=== PATIENT | female | born 1940 | race Caucasian/White ===

== ENCOUNTER 2019-09-09 11:25 | Observation (INO) ==
[2019-09-09] MEDS ORDERED: ONDANSETRON INJ 2 MG/ML 2 ML VIAL IV STA (12:08)
[2019-09-09 12:31] LABS: Basophils # (auto) 0.03 K/uL (0-0.2); Basophils % (auto) 0.3 %; Eosinophils # (auto) 0.33 K/uL (0-0.5); Hemoglobin 17.4 g/dL (12.0-16.0); Immature Granulocytes # (auto) 0.02 K/uL (0.00-0.02); Immature Granulocytes % (auto) 0.2 %; Lymphocytes # (auto) 1.98 K/uL (1.2-3.4); Lymphocytes % (auto) 18.1 %; Mean Corpuscular Hemoglobin 34.4 pg (25-34); Mean Corpuscular Hgb Conc 34.1 g/dL (32-36); Mean Corpuscular Volume 100.8 fL (80-100); Monocytes # (auto) 0.61 K/uL (0.11-0.59); Monocytes % (auto) 5.6 %; Neutrophils # (auto) 7.96 K/uL (1.4-6.5); Neutrophils % (auto) 72.8 %; Platelet Count 233 K/uL (130-400); RDW Coefficient of Variation 14.7 % (11.5-14.5); RDW Standard Deviation 53.9 fL (36.4-46.3); Red Blood Count 5.06 M/uL (4.2-5.4); White Blood Count 10.93 K/uL (4.8-10.8)
--- NOTE | 2019-09-09 12:34 | Emergency Department Note ---
Entered by Maite Painting acting as a scribe for History of Present Illness General Chief complaint: Dizziness Stated complaint: LIGHT HEADED, DIZZY, NAUSEA,HTN Time Seen by Provider: 09/09/19 12:01 Source: patient Mode of arrival: ambulatory Limitations: no limitations History of Present Illness Provider complaint: Dizziness Onset (ago): hour(s) (this morning) Location: head Radiation: non-radiation Pain Consistency: + other (persistent) Maximum Pain Intensity: 0 Quality: + other (dizziness) Relieved By: + other (sitting down) Exacerbated By: + movement (standing) Associated symptoms: + cough (chronic), + nausea/vomiting and + other (Additional symptoms: hypertension. Denies: abdominal pain, urinary symptoms); no chest pain and no fever/chills Treatments prior to arrival: none The patient is a 78 year old female with a history of hypertension who presents to the Emergency Room with complaints of persistent dizziness starting this morning. The patient reports that she felt dizzy when she woke up and notes that the room feels likes it is "rocking" when she stands. She states that her dizziness improves with sitting down. She also complains of nausea and hypertension. She explains that she does not normally check her blood pressure but recalls that it was 130/80 the last time she saw her doctor. The patient reports that she experienced similar symptoms yesterday and explains that they resolved as the day went on. She notes that her family made her come in today due to her persistent dizziness. The patient adds that she has had a chronic cough for the past 3 years but otherwise denies any fevers, abdominal pain, b[address] pain, urinary symptoms, and recent illnesses. She states that she has been taking Valsartan for hypertension for many years and recently started using an inhaler for possible COPD. She concedes to having smoked half a pack or less every day for the past 60 years. Home Medications Home Medications Medication Instructions Recorded Confirmed Type albuterol sulfate 2 puff INHALATION Q6H PRN 09/09/19 09/09/19 History diphenhydramine-acetaminophen 1 tab PO HS 09/09/19 09/09/19 History [Acetaminophen PM] simvastatin 20 mg PO HS 09/09/19 09/09/19 History valsartan-hydrochlorothiazide 1 tab PO DAILY 09/09/19 09/09/19 History Allergies Allergy/AdvReac Type Severity Reaction Status Date / Time bupropion [From Zyban] Allergy Hives Unverified 09/09/19 13:35 minocycline Allergy Rash Unverified 09/09/19 13:35 Past Med/Surg History Medical History (Updated 09/09/19 @ 14:30 by JOSEPH Valentine) CKD (chronic kidney disease), stage III COPD (chronic obstructive pulmonary disease) Hypertension Surgical History (Updated 09/09/19 @ 14:30 by JOSEPH Valentine) History of hysterectomy Social History (Updated 09/09/19 @ 13:51 by Maite Painting) Preferred Language: Uruguayan marital status: single current occupational status: retired Feels Safe at Home: Yes Smoking Status: Current every day smoker packs per day: 0.5 ; Years Smoked: 60 ; Review of Systems See HPI for pertinent positives & negatives. and A total of 10 systems reviewed and were otherwise negative Physical Exam Vital Signs Vital Signs - 24 hr 09/09/19 11:31 09/09/19 12:29 09/09/19 13:13 Temperature 36.4 C L Temperature Source Oral Pulse Rate 103 H Pulse Rate [Left Foot] 84 82 Pulse Rhythm Regular Pulse Strength Normal Respiratory Rate 20 16 20 Respiratory Effort / Characteristics Non-Labored Non-Labored Respiratory Depth Normal Normal Respiratory Pattern Regular Blood Pressure 189/111 H Blood Pressure [Left Arm] 206/102 H 172/89 H Blood Pressure Mean 137 Blood Pressure Mean [Left Arm] 136 116 Blood Pressure Position Sitting Pulse Oximetry 93 94 92 Oxygen Delivery Method Room Air Room Air Room Air Sepsis Recent Fever Within 48 Hours No Sepsis New/Unexplained Change in Mental Status No Sepsis Action Taken by Nursing No Action Required VITAL SIGNS: were reviewed as above. GENERAL:Non-toxic in appearance. SKIN: Warm dry and pink. HEAD: Normocephalic and atraumatic. OROPHARYNX: Is clear and moist NECK: Supple without lymphadenopathy or meningismus. LUNGS: Are clear. HEART: Regular rate and rhythm. ABDOMEN: Soft and nontender. EXTREMITIES: Warm and well perfused. NEUROLOGICALLY: Awake alert and oriented without focal deficit. Cranial nerves 2-12 are intact. There is no pronator drift. Cerebellar testing is within normal limits. There is no nystagmus. There is no facial droop. Speech is clear. Vision is grossly normal. MUSCULOSKELETAL: Good muscle tone. No evidence of trauma. Strength is symmetric. ALL NURSING NOTES WERE REVIEWED. Course Course 1203: The patient was evaluated in room C2B, and a complete history and physical examination were performed. 1310: I checked on the patient and updated her and her family on her results. 1332: I reviewed the patient's case with [facility]. [facility] will evaluate the patient for further management. 1344: Upon reevaluation, the patient is resting. I discussed the results and findings with her and her family. They verbalized agreement of the treatment plan. Consultations Consultation #1: I reviewed the patient's case with [facility]. [facility] will evaluate the patient for further management. Time: 13:32 Administered Medications Discontinued Medications Amlodipine Besylate (Norvasc) 5 mg PO NOW ONE Stop: 09/09/19 13:56 Last Admin: 09/09/19 14:14 Dose: 5 mg Documented by: [id number] Ondansetron HCl (Zofran) 4 mg IV NOW STA Stop: 09/09/19 12:09 Last Admin: 09/09/19 12:43 Dose: 4 mg Documented by: [id number] Medical Decision Making Differential Diagnosis Differential diagnosis: Etiologies such as metabolic, infection, hypo/hyperglycemia, electrolyte abnormalities, cardiac sources, intracerebral event, toxicologic, neurologic, as well as others were entertained. Medical Records Attestation: I reviewed the patient's medical records. Home Medications Current Medication List: was personally reviewed by me Laboratory Data Attestation: I reviewed the patient's lab results. Result diagrams: 09/09/19 12:20 09/09/19 13:19 Lab Results 09/09/19 09/09/19 09/09/19 Range/Units 12:20 12:20 13:19 WBC 10.93 H (4.8-10.8) K/uL RBC 5.06 (4.2-5.4) M/uL Hgb 17.4 H (12.0-16.0) g/dL Hct 51.0 H (37-47) % MCV 100.8 H (80-100) fL MCH 34.4 H (25-34) pg MCHC 34.1 (32-36) g/dL RDW Std Deviation 53.9 H (36.4-46.3) fL RDW Coeff of Payton 14.7 H (11.5-14.5) % Plt Count 233 (130-400) K/uL MPV 10.0 (7.4-10.4) fL Immature Gran % (Auto) 0.2 % Neut % (Auto) 72.8 % Lymph % (Auto) 18.1 % [place] % (Auto) 5.6 % Eos % (Auto) 3.0 % Baso % (Auto) 0.3 % Immature Gran # (Auto) 0.02 (0.00-0.02) K/uL Neut # (Auto) 7.96 H (1.4-6.5) K/uL Lymph # (Auto) 1.98 (1.2-3.4) K/uL [place] # (Auto) 0.61 H (0.11-0.59) K/uL Eos # (Auto) 0.33 (0-0.5) K/uL Baso # (Auto) 0.03 (0-0.2) K/uL Sodium 138 (136-145) mmol/L Potassium 4.0 (3.5-5.1) mmol/L Chloride 102 (98-107) mmol/L Carbon Dioxide 29 (21-32) mmol/L Anion Gap 7.0 (3-11) BUN 21 H (7-18) mg/dl Creatinine 0.98 (0.6-1.2) mg/dl Est Cr Clr Drug Dosing 47.0 ml/min Est GFR ( Amer) 63.6 Est GFR (Non-Af Amer) 54.9 BUN/Creatinine Ratio 21.1 H (10-20) Glucose 89 (70-99) mg/dl Calcium 9.9 (8.5-10.1) mg/dl Total Bilirubin 1.0 (0.2-1) mg/dl AST 14 L (15-37) U/L ALT 20 (12-78) U/L Alkaline Phosphatase 78 (45-117) U/L Troponin I < 0.015 (0-0.045) ng/ml Total Protein 7.5 (6.4-8.2) gm/dl Albumin 3.9 (3.4-5.0) gm/dl Globulin 3.6 (2.5-4.0) gm/dl Albumin/Globulin Ratio 1.1 (0.9-2) TSH 3.220 (0.300-4.500) uIu/ml Imaging Data Radiologist's Impression: Radiology results as stated below per my review and the radiologist's interpretation: XR chest 1V portable CLINICAL HISTORY: 78 years-old Female presenting with weakness. TECHNIQUE: Portable upright AP view of the chest was obtained. COMPARISON: None. FINDINGS: Atherosclerosis of the aortic arch. Cardiac silhouette normal in size. Lungs are hyperinflated with significant heterogeneity of lung parenchyma. Mild interstitial prominence.. No focal opacity. No pleural effusion or pneumothorax. Osteopenia suspected. Upper abdomen normal. IMPRESSION: 1. Findings suggest emphysema. No focal infiltrate to suggest pneumonia. ACT 112: Negative or not required by law. Electronically signed by: Joao Pandya M.D. 09/09/2019 1:[address] CT DOSE: 638.56 mGycm HISTORY: dizziness TECHNIQUE: Multiaxial CT images of the head were performed without the use of intravenous contrast. Automated exposure control was utilized for this study. A dose lowering technique was utilized adhering to the principles of ALARA. Comparison: None. Findings: Mild mucosal thickening within the ethmoid air cells. The mastoid air cells are clear. The calvarium and skull base are intact. There is no mass, hematoma, midline shift, acute infarct. White matter hypodensity is nonspecific but suggestive of microvascular ischemic change. The ventricles and sulci demonstrate mild age-related involutional changes. 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 Impression: No acute intracranial abnormality. Atrophy and microvascular ischemic changes. ACT 112: Negative or not required by law. Electronically signed by: Alvin Shelton M.D. 09/09/2019 1:09 PM ECG Data Attestation: I personally reviewed and interpreted this ECG as follows: Indication: + other (dizziness) Rate (beats per minute): 84 Rhythm: + normal sinus ECG Intervals/blocks: + Normal QT-c ECG ST segments: no ST elevation ECG Findings: no PVCs Blood Pressure Blood Pressure Findings: Elevated blood pressure Blood Pressure Disposition: further management by hospitalist JED Garcia This is a 78-year-old female who presents to the ED with a chief complaint of feeling dizzy when she awoke this morning. The patient states that her dizzy sensation is a sensation that the room is moving slightly when standing. It seems to be better with sitting. She also complains of some nausea. She had the same symptoms yesterday morning when she awoke but it improved throughout the day. The patient also noted that her blood pressure was elevated this morning. She does not take her blood pressure regularly but states the last time it was checked at the PCPs office it was around 130 systolic. The patient has a blood pressure of 189/111 today. Her heart rate is 103. Her physical exam and neuro exam were unremarkable. The patient CBC was unremarkable. Chemistry panel was normal. Troponin is negative. EKG showed a normal sinus rhythm with no ST elevations or ectopy. There is T wave inversions in aVL. No old EKG was available for comparison. A CT scan of the brain reveals no acute p rocess but there is microvascular ischemic changes. Chest x-ray was negative for acute disease. The patient did receive IV Zofran. Her blood pressure seems to be slowly improving without treatment here. The highest blood pressure was 206/102. Last blood pressure was 172/89. Because the patient's symptoms and significant hypertension, the patient will be seen for observation and for further evaluation by the hospitalist service. The patient was treated with some IV Zofran for her nausea. Impression & Plan Accelerated hypertension, Dizziness Discharge Plan Visit Data Chief Complaint: Dizziness Stated Complaint: LIGHT HEADED, DIZZY, NAUSEA,HTN ED Provider: Saulo Austin Discharge Problem: Accelerated hypertension, Dizziness Patient Disposition: Admitted As Inpatient Forms Stand Alone Forms: [facility] Prescriptions Prescriptions: No Action valsartan-hydrochlorothiazide 320-12.5 mg tablet 1 tab PO DAILY RF: 0 diphenhydramine-acetaminophen [Acetaminophen PM] 25-500 mg Tablet 1 tab PO HS RF: 0 simvastatin 20 mg tablet 20 mg PO HS RF: 0 albuterol sulfate 90 mcg/actuation HFA aerosol inhaler 2 puff INHALATION Q6H PRN (Reason: Shortness Of Breath) RF: 0 Referrals Referrals: Thao Madrid MD [Primary Care Provider] - The scribe's documentation has been prepared under my direction and personally reviewed by me in its entirety. I confirm that the note above accurately reflects all work, treatment, procedures, and medical decision making performed by me.
[2019-09-09 13:05] LABS: Alanine Aminotransferase 20 U/L (12-78); Albumin Level 3.9 gm/dl (3.4-5.0); BUN Creatinine Ratio 21.1 (10-20); Blood Urea Nitrogen 21 mg/dl (7-18); Calcium 9.9 mg/dl (8.5-10.1); Carbon Dioxide 29 mmol/L (21-32); Chloride 102 mmol/L (98-107); Est GFR (African American) 63.6; Est GFR (Non-African American) 54.9; Glucose 89 mg/dl (70-99); Sodium 138 mmol/L (136-145)
[2019-09-09 13:09] LABS: Albumin Globulin Ratio 1.1 (0.9-2); Alkaline Phosphatase 78 U/L (45-117); Globulin 3.6 gm/dl (2.5-4.0); Total Protein 7.5 gm/dl (6.4-8.2); Troponin I < 0.015 ng/ml (0-0.045)
--- NOTE | 2019-09-09 13:10 | CT Scan Report ---
HEAD CT NONCONTRAST CT DOSE: 638.56 mGycm HISTORY: dizziness TECHNIQUE: Multiaxial CT images of the head were performed without the use of intravenous contrast. A utomated exposure control was utilized for this study. A dose lowering technique was utilized adheri ng to the principles of ALARA. Comparison: None. Findings: Mild mucosal thickening within the ethmoid air cells. The mastoid air cells are clear. The calvarium and skull base are intact. There is no mass, hematoma, midline shift, acute infarct. White matter hypodensity is nonspecific but suggestive of microvascular ischemic change. The ventricles and sulci demonstrate mild age-related involutional changes. 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 Impression: No acute intracranial abnormality. Atrophy and microvascular ischemic changes. ACT 112: Negative or not required by law. Electronically signed by: Alvin Shelton M.D. 09/09/2019 1:09 PM
--- NOTE | 2019-09-09 13:20 | XRay Report ---
XR chest 1V portable CLINICAL HISTORY: 78 years-old Female presenting with weakness. TECHNIQUE: Portable upright AP view of the chest was obtained. COMPARISON: None. FINDINGS: Atherosclerosis of the aortic arch. Cardiac silhouette normal in size. Lungs are hyperinflated with s ignificant heterogeneity of lung parenchyma. Mild interstitial prominence.. No focal opacity. No pleu ral effusion or pneumothorax. Osteopenia suspected. Upper abdomen normal. IMPRESSION: 1. Findings suggest emphysema. No focal infiltrate to suggest pneumonia. ACT 112: Negative or not required by law. Electronically signed by: Joao Pandya M.D. 09/09/2019 1:18 PM
[2019-09-09] MEDS ORDERED: AMLODIPINE BESYLATE 5 MG TAB PO ONE (13:55)
--- NOTE | 2019-09-09 14:48 | History & Physical Report ---
Date of Service September 09, 2019 Assessment & Plan (1) Hypertensive urgency: (2) Dizziness: -Admit to [facility] with telemetry -Patient presenting from home with reports of dizziness and nausea, in the ED found to have significantly elevated BP 206/102 -Typically managed on valsartan 325 mg/HCTZ 12.5 mg at home; will start amlodipine 5 mg daily; aiming for slow reduction in BP -Suspect symptoms are secondary to hypertensive urgency however given microvascular ischemic changes and old bilateral basal ganglia infarcts on CT scan, will obtain brain MRI -Carotid Dopplers, echo -Continue home dose of simvastatin, check lipid panel in a.m. and if not at goal, consider increasing -Start aspirin (3) CKD (chronic kidney disease), stage III: - baseline creat ~ 1.0 - creat noted to be 0.9 today - continue to monitor, avoid nephrotoxic agents when able (4) COPD (chronic obstructive pulmonary disease): -Does not use routine inhalers at home -No signs of acute exacerbation (5) Tobacco abuse: -Patient counseled regarding tobacco cessation (6) DVT prophylaxis: -SQ Lovenox History of Present Illness Chief Complaint: Dizziness Primary Care Provider: Thao Madrid MD 78-year-old female who presents the ED for evaluation of dizziness. Patient reports symptoms began yesterday and are intermittent. This morning, whenever she woke up she felt dizzy again. She also has some associated nausea. Denies vomiting. Reports she otherwise been feeling well recently. No other recent ulcers, fevers, chills. Denies chest pain or shortness of breath. Had some mi ld associated lightheadedness but denies any syncopal event. No abdominal pain or diarrhea. Denies urinary symptoms. Denies any changes in medications recently and has been taking medication as prescribed. No use of other [id number] medications. In the ED, BP was found to be significantly elevated at 206/102. Labs are unremarkable. Head CT showed old small lacunar infarcts seen within the bilateral basal ganglia and atrophy and microvascular ischemic changes, however no acute findings. Patient was given 1 dose of IV Zofran. Allergies Allergy/AdvReac Type Severity Reaction Status Date / Time bupropion [From Zyban] Allergy Hives Unverified 09/09/19 13:35 minocycline Allergy Rash Unverified 09/09/19 13:35 Home Medications Home Medications Medication Instructions Recorded Confirmed Type albuterol sulfate 2 puff INHALATION Q6H PRN 09/09/19 09/09/19 History diphenhydramine-acetaminophen 1 tab PO HS 09/09/19 09/09/19 History [Acetaminophen PM] simvastatin 20 mg PO HS 09/09/19 09/09/19 History valsartan-hydrochlorothiazide 1 tab PO DAILY 09/09/19 09/09/19 History Past Med/Surg History Medical History (Updated 09/09/19 @ 14:47 by JOSEPH Valentine) CKD (chronic kidney disease), stage III COPD (chronic obstructive pulmonary disease) Hypertension Tobacco abuse Surgical History History of hysterectomy Family History Mother Colorectal cancer Hypertension Father Kidney disease Hypertension Social History Preferred Language: Mosotho marital status: single current occupational status: retired Feels Safe at Home: Yes Smoking Status: Current every day smoker packs per day: 0.5 ; Years Smoked: 60 ; Hx Alcohol Use: Yes Review of Systems Review of Systems: ROS per HPI, all other systems reviewed and negative Physical Exam Physical Exam: please refer to Dr. Aburto's addendum for physical exam. Results & Data Vital Signs (Past 12 Hours) Vital Signs Temp Pulse Pulse Resp BP BP Pulse Ox 09/09/19 13:13 82 20 172/89 H 92 09/09/19 12:29 84 16 206/102 H 94 09/09/19 11:31 36.4 C L 103 H 20 189/111 H 93 Laboratory Results Short CBC 09/09/19 Range/Units 12:20 WBC 10.93 H (4.8-10.8) K/uL Hgb 17.4 H (12.0-16.0) g/dL Hct 51.0 H (37-47) % Plt Count 233 (130-400) K/uL BMP 09/09/19 09/09/19 12:20 13:19 Sodium 138 Potassium 4.0 Chloride 102 Carbon Dioxide 29 BUN 21 H Creatinine 0.98 Glucose 89 Calcium 9.9 Cardiac Enzymes 01/20/20 Range/Units 12:20 Troponin I < 0.015 (0-0.045) ng/ml Liver Function 09/09/19 09/09/19 Range/Units 12:20 13:19 Total Bilirubin 1.0 (0.2-1) mg/dl AST 14 L (15-37) U/L ALT 20 (12-78) U/L Alkaline Phosphatase 78 (45-117) U/L Albumin 3.9 (3.4-5.0) gm/dl Diagnostic Findings Head CT Impression: No acute intracranial abnormality. Atrophy and microvascular ischemic changes. CXR IMPRESSION: 1. Findings suggest emphysema. No focal infiltrate to suggest pneumonia. Code Status & VTE Plan Code Status Patient is a DNR as per Dr. Aburto's discussion with the patient. VTE Prophylaxis Plan VTE Prophylaxis will be ordered: Yes Supervising Physician Co-Signing Physician Notes Attending Addendum: care coordinated with JOSEPH Sanders please refer to her notes for full details, I agree with her notes patient seen and examined, records reviewed by myself as well on exam, patient seen sitting up in chair, comfortable, pleasant States she feels slightly dizzy, but no nausea, headache, chest pain, shortness of breath, abdominal pain, focal weakness or numbness no other symptoms VS noted and reviewed oriented x 3 , not in distress, speaks in sentences with no effort nor accessory muscle use normal rate, regular rhythm, no murmurs clear breath sounds bilaterally non distended, soft, nontender no bipedal edema, erythema, warmth no neuro deficits WBC 10.9 [address] head: Old small lacunar infarcts seen within the bilateral basal ganglia. No acute intracranial abnormality. Atrophy and microvascular ischemic changes. ASSESSMENT AND PLAN DIZZINESS, IN THE SETTING OF UNCONTROLLED HYPERTENSION Patient reports adherence to her usual valsartan/hydrochlorothiazide, AHA diet CT head: No acute CVA but does reveal old small lacunar infarcts within the bilateral basal ganglia --Start amlodipine 5 mg p.o. daily Continue valsartan/hydrochlorothiazide --Check brain MRI to rule out acute CVA given findings of old small lacunar infarcts --Avoid abrupt decrease in blood pressure OLD SMALL LACUNAR INFARCTS WITHIN THE BILATERAL BASAL GANGLIA No documented history of CVA in the past --Check carotid ultrasound, echocardiogram Brain MRI pending as noted in #1 --Start aspirin 81 mg p.o. daily Check lipid panel, already on simvastatin 20 mg p.o. at at bedtime, titrate accordingly --Patient counseled on strict risk factor control including blood pressure, cholesterol, smoking cessation other diagnoses and plan of care as per SAROJ Sanders's notes Brooks Aburto MD
[2019-09-09] MEDS ORDERED: GADOBUTROL 65ML VIAL IV PRN (15:19)
--- NOTE | 2019-09-09 15:34 | Magnetic Resonance Report ---
MR brain wo/w con CLINICAL HISTORY: 78 years-old Female presenting with dizziness, HTN, nausea. TECHNIQUE: Multisequence, multiplanar MR imaging of the brain was performed before and after the admi nistration of intravenous contrast. IV contrast: 6.5 mL of Gadavist. COMPARISON: Noncontrast CT head from earlier today. FINDINGS: Localizer images: Unremarkable. Bone marrow signal intensity within the calvarium within normal limits. Normal midline sagittal structures. Proportional ventricular and sulcal prominence, likely age-relate d parenchymal volume loss. No mass effect or midline shift. Acute lacunar infarct in the paramedian r ight cerebellar hemisphere. Associated T2/FLAIR hyperintensity. Periventricular and subcortical white matter T2/FLAIR hyperintensity, nonspecific but likely indicative of chronic small vessel ischemic c hange. No abnormal parenchymal enhancement. No extra-axial fluid collection. T2 skull base flow voids preserved. Bilateral wainwright lenses are abse nt. IMPRESSION: 1. Acute lacunar infarct in the right cerebellar hemisphere. T2/FLAIR hyperintensity suggests an inf arct at T6-12 hours old. 2. Chronic small vessel ischemic change. 3. No abnormal enhancement. The report will be called/faxed according to standard departmental protocol for a critical finding. ACT 112: Negative or not required by law. Electronically signed by: Joao Pandya M.D. 09/09/2019 3:33 PM
[2019-09-09] MEDS ORDERED: ACETAMINOPHEN 325 MG TAB PO PRN (15:52)
[2019-09-09] MEDS ORDERED: PHARMACIST DISCHARGE MED REC CONSULT PRN (16:28)
[2019-09-09] MEDS: ASPIRIN 81 MG ECTAB PO SCH (16:40)
[2019-09-09] MEDS ORDERED: ENOXAPARIN INJ 40 MG/0.4 ML SYR SQ SCH (17:00)
[2019-09-09] MEDS ORDERED: SIMVASTATIN 20 MG TAB PO SCH (21:00)
--- NOTE | 2019-09-09 21:56 | Ultrasound Report ---
US carotid doppler BI HISTORY: Mental status change stroke w/u COMPARISON: None. TECHNIQUE: Real-time, grayscale, and color Doppler sonography of the carotid arteries was performed. Imaging reviewed in the transverse and longitudinal planes. All measurements were calculated based on NASCET criteria. FINDINGS: Antegrade flow is seen in the bilateral vertebral arteries. The brachial pressures are hemodynamically similar. Minimal lacrimation bilaterally The peak systolic velocity within the right ICA is 72. The right systolic ratio is 0.9. The peak systolic velocity within the left ICA is 68. The left systolic ratio is 0.7. IMPRESSION: No hemodynamically significant stenosis seen within the carotid arteries. ACT 112: Negative or not required by law. The above report was generated using voice recognition software. It may contain grammatical, syntax or spelling errors. Electronically signed by: Jesus March M.D. 09/09/2019 9:54 PM
[2019-09-09] MEDS ORDERED: HydrALAZINE HCL 20 MG/ML VIAL IV PRN (22:38)
--- NOTE | 2019-09-09 22:44 | Electrocardiogram Report ---
Test Reason : Blood Pressure : / mmHG Vent. Rate : 084 BPM Atrial Rate : 084 BPM P-R Int : 142 ms QRS Dur : 076 ms QT Int : 388 ms P-R-T Axes : 076 072 077 degrees QTc Int : 458 ms Normal sinus rhythm Normal ECG No previous ECGs available Confirmed by Elvis Roldan ([id number]) on 09/09/2019 10:44:54 PM Referred By: ED Confirmed By:Elvis Roldan
[2019-09-10] MEDS ORDERED: PROMETHAZINE HCL 12.5 MG in SODIUM CHLORIDE 0.9% 50 ML IV PRN (01:11)
[2019-09-10 05:56] LABS: Hematocrit (blood only) 46.2 % (37-47); Hemoglobin 15.3 g/dL (12.0-16.0); Mean Corpuscular Hemoglobin 33.2 pg (25-34); Mean Corpuscular Hgb Conc 33.1 g/dL (32-36); Mean Corpuscular Volume 100.2 fL (80-100); Mean Platelet Volume 9.6 fL (7.4-10.4); Platelet Count 192 K/uL (130-400); RDW Coefficient of Variation 14.6 % (11.5-14.5); RDW Standard Deviation 53.4 fL (36.4-46.3); Red Blood Count 4.61 M/uL (4.2-5.4); White Blood Count 8.45 K/uL (4.8-10.8)
[2019-09-10 06:16] LABS: Estimated Average Glucose 108 mg/dl; Hemoglobin A1C 5.4 % (4.5-5.6)
[2019-09-10 06:37] LABS: BUN Creatinine Ratio 20.8 (10-20); Calcium 9.1 mg/dl (8.5-10.1); Creatinine Clr Calc Pharmacy 49.5 ml/min; Est GFR (African American) 67.7; Est GFR (Non-African American) 58.5; Potassium 3.8 mmol/L (3.5-5.1)
[2019-09-10] MEDS ORDERED: hydroCHLOROthiazide 25 MG TAB PO SCH (09:00)
[2019-09-10] MEDS ORDERED: AMLODIPINE BESYLATE 5 MG TAB PO SCH (09:00)
[2019-09-10] MEDS ORDERED: VALSARTAN 80 MG TAB PO SCH (09:00)
[2019-09-10] MEDS: ASPIRIN 81 MG ECTAB PO SCH (09:07)
[2019-09-10] MEDS ORDERED: OPTIRAY 320 125ml IV PRN (10:17)
--- NOTE | 2019-09-10 11:05 | CT Scan Report ---
HEAD & NECK CTA HISTORY: cerebellar infarct TECHNIQUE: Multiaxial CT images of the head were performed following the intravenous administration o f contrast to evaluate the major cerebral vessels. Multiaxial CT images of the neck were also perform ed following the intravenous administration of contrast to evaluate the major cervical vessels. Maxim um intensity projection images were also obtained. A dose lowering technique was utilized adhering to the principles of ALARA. COMPARISON: Head CT 09/09/2019. Brain MRI 09/09/2019. FINDINGS: An 8 mm hypodensity within the right cerebellar hemisphere consistent with the subacute lacunar infar ct. The major dural venous sinuses are patent. Mild calcified plaque within the bilateral carotid sip hons. Visualized intracranial internal carotid arteries, distal vertebral arteries, and basilar arter y are widely patent. There is no significant stenosis or occlusion seen within the bilateral ACAs, MC As, or sociology instructor. Best seen on axial image 77 there is a 3 mm aneurysm at the origin of the left posterior communicating artery. The aortic arch and proximal great vessels are widely patent. There is no significant stenosis, occ lusion, or dissection identified within the bilateral common carotid, left internal carotid, or verte bral arteries. Moderate emphysema. Retention cyst within the right maxillary sinus. Degenerative hernandez ges within the cervical spine. Mild calcified plaque within the aortic arch and proximal great vessel s. Mild left and moderate right carotid bifurcation calcification. This results in approximately 30% focal narrowing within the right carotid bulb. Thyroid tissue anterior to the thyroid cartilage. IMPRESSION: 1. No significant stenosis or occlusion within the [place]. 2. 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 3. Approximately 30% focal narrowing within the right carotid bulb due to the calcified plaque. 4. No significant stenosis or occlusion within the vertebral arteries or left carotid arteries. 5. Redemonstration of the subcentimeter subacute right cerebellar infarct. ACT 112: Negative or not required by law. Electronically signed by: Alvin Shelton M.D. 09/10/2019 11:03 AM
--- NOTE | 2019-09-10 11:05 | CT Scan Report ---
HEAD & NECK CTA HISTORY: cerebellar infarct TECHNIQUE: Multiaxial CT images of the head were performed following the intravenous administration o f contrast to evaluate the major cerebral vessels. Multiaxial CT images of the neck were also perform ed following the intravenous administration of contrast to evaluate the major cervical vessels. Maxim um intensity projection images were also obtained. A dose lowering technique was utilized adhering to the principles of ALARA. COMPARISON: Head CT 09/09/2019. Brain MRI 09/09/2019. FINDINGS: An 8 mm hypodensity within the right cerebellar hemisphere consistent with the subacute lacunar infar ct. The major dural venous sinuses are patent. Mild calcified plaque within the bilateral carotid sip hons. Visualized intracranial internal carotid arteries, distal vertebral arteries, and basilar arter y are widely patent. There is no significant stenosis or occlusion seen within the bilateral ACAs, MC As, or energy trader. Best seen on axial image 77 there is a 3 mm aneurysm at the origin of the left posterior communicating artery. The aortic arch and proximal great vessels are widely patent. There is no significant stenosis, occ lusion, or dissection identified within the bilateral common carotid, left internal carotid, or verte bral arteries. Moderate emphysema. Retention cyst within the right maxillary sinus. Degenerative hernandez ges within the cervical spine. Mild calcified plaque within the aortic arch and proximal great vessel s. Mild left and moderate right carotid bifurcation calcification. This results in approximately 30% focal narrowing within the right carotid bulb. Thyroid tissue anterior to the thyroid cartilage. IMPRESSION: 1. No significant stenosis or occlusion within the [place]. 2. 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 3. Approximately 30% focal narrowing within the right carotid bulb due to the calcified plaque. 4. No significant stenosis or occlusion within the vertebral arteries or left carotid arteries. 5. Redemonstration of the subcentimeter subacute right cerebellar infarct. ACT 112: Negative or not required by law. Electronically signed by: Alvin Shelton M.D. 09/10/2019 11:03 AM
--- NOTE | 2019-09-10 14:49 | Neurology Consultation ---
Date of Consultation September 10, 2019 Assessment & Plan (1) Lacunar infarct, acute: 1. MRI lacunar infarct R cerebellar hemisphere 2. TTE no ASD 3. CTA no significant stenosis incidentally found 3 mm ANR- will need re imaged in 3 months 4. start aspirin 81 mg and plavix 75 mg daily x 21 days then stop plavix and aspirin for a lifetime 5. optimize HTN, HLD LDL <70 consider patient age LDL (68) continue current therapy PCP to follow 6. ok to discharge to home from neurology perspective follow up in neurology 4-6 weeks after discharge Mayuri Oden PAC schedule (2) Hypertensive urgency: as above (3) CKD (chronic kidney disease), stage III: as above (4) Hypertension: as above (5) Dizziness: as above Supervising Physician Co-Signing Physician Notes I have seen and discussed above patient with Dr Olivier Mckeon, neurology I have interviewed and examined and reviewed the ridging studies concerning this patient and have discussed her case with Mayuri Oden PA-C This is a patient with poorly controlled hypertension who was not on any antiplatelet agents for several years and who presented with an initial brief episode of vertigo this past Monday followed on Monday morning by another more sustained episode which resulted in her presentation to the hospital, performance of diagnostic studies including an MRI which revealed a very small left cerebellar hemispheric infarct and subsequently was associated with no significant abnormalities on CT angiography of the cervical or intracranial vessels other than an incidental 3 mm aneurysm and nothing on echocardiogram to suggest a source of emboli She is currently ready for discharge has had some Norvasc added to her antihypertensive regimen and is on dual antiplatelet therapy with Plavix and aspirin which we are going to recommend be continued for 21 days and then switch to pure aspirin We will see her in about 3 weeks review things and she is going to follow-up with her primary care physician and have her vascular risk factors treated appropriately. Currently her LDL is well within accepted range so I do not think any more statin therapy is indicated and her primary care will be adjusting her outpatient antihypertensives I do not think we need a ZIO Patch in this setting has the history suggests a localized vascular event emerging over a period of several hours rather than an acute embolic 1 and involving small vessels supplying the left cerebellar hemis phere We may however change our opinion when we see her in follow-up and again reviewed the history Olivier Mckeon MD History of Present Illness Reason for Consultation: stroke Requesting Physician: Funmi Lugo DO Attending Physician: Funmi Lugo DO History of Present Illness Mayuri is a 78 year old female with a PMH tobacco abuse, HTN, CKD III, COPD who presents the ED for evaluation of dizziness. She has had some intermittent dizziness for the past 2 days and when she woke after sleep she felt dizzy again and had some nausea. There was also some mild associated lightheadedness but no syncopal event. She has been taking her BP medications as directed but it was found to be significantly elevated at 206/102. She was told she could stop her aspirin several years ago. CT head showed old small lacunar infarcts seen within the bilateral basal ganglia and atrophy and microvascular ischemic changes, however no acute findings. Today she states she is feeling back to her baseline but she is being careful with walking because she is afraid of falling. denies CP, SOB, abdominal pain, one sided weakness, numbness tingling, no current nausea vomiting, facial droop, slurred speech, vision changes. Allergies Allergy/AdvReac Type Severity Reaction Status Date / Time bupropion [From Zyban] Allergy Hives Unverified 09/09/19 13:35 minocycline Allergy Rash Unverified 09/09/19 13:35 Home Medications Home Medications Medication Instructions Recorded Confirmed Type albuterol sulfate 2 puff INHALATION Q6H PRN 09/09/19 09/09/19 History diphenhydramine-acetaminophen 1 tab PO HS 09/09/19 09/09/19 History [Acetaminophen PM] simvastatin 20 mg PO HS 09/09/19 09/09/19 History valsartan-hydrochlorothiazide 1 tab PO DAILY 09/09/19 09/09/19 History Patient History Medical History (Updated 09/10/19 @ 14:54 by Mayuri Oden PA-C) CKD (chronic kidney disease), stage III COPD (chronic obstructive pulmonary disease) Hypertension Tobacco abuse Surgical History History of hysterectomy Family History Mother Colorectal cancer Hypertension Father Kidney disease Hypertension Social History Preferred Language: Swedish Communication Ability: Effective Beliefs That Will Affect Care: None marital status: single Current Living Situation: Alone Current Living Situation Comment: SON LIVES RIGHT NEXT DOOR current occupational status: retired Other Information That Helps Us Care for You: No Feels Safe at Home: Yes Safety Concerns: Feels Safe At This Time Smoking Status: Current every day smoker Tobacco Type: cigarettes ; packs per day: 0.5 ; Years Smoked: 60 ; Cigarettes Per Day: 5 ; Hx Alcohol Use: Yes Alcohol type: hard liquor Hx Substance Use: No Physical Exam Physical Exam: Physical Exam: Constitutional: appearance nourished, healthy and normal Ears, Nose, Mouth and Throat: mucous membranes moist, no injection and skin normal, eyes normal Cardiovascular: normal S-1 and S-2 and regular rate and rhythm Respiratory: clear to auscultation Musculoskeletal: no peripheral edema and good distal pulses Skin: no stigmata of neurocutaneous disease noted and normal and intact Eyes: extraocular muscles intact (EOMI) and pupils equal, round and reactive to light (PERRL) NEUROLOGIC EXAMINATION: Mental status: Alert and interactive Oriented to full date and location Oriented to person Speech fluent with no evidence of aphasia Cranial Nerves smile eye brow raise symmetric Reflexes: Deep tendon reflexes were symmetrical and graded 2/5. GT proprioception intact bilaterally Sensory: light or cool touch Coordination: Romberg absent Gait/Stance: Posture normal. Gait normal: with steady with steps, base, turning, tandem gait. Motor: Negative for pronator drift of out stretched arms with eyes closed. Strength: biceps triceps hand ballroom dancer deltoids 5/5, hip flex patellar plantar flex ext 5/5 Results & Data Vital Signs (Past 12 Hours) Vital Signs Temp Pulse Pulse Resp BP BP Pulse Ox 09/10/19 11:35 36.9 C 78 18 141/84 H 91 09/10/19 07:20 70 09/10/19 07:14 36.8 C 75 18 150/66 H 97 09/10/19 04:05 36.7 C 78 18 155/70 H 90 Laboratory Results Abnormal lab results 09/10/19 09/10/19 Range/Units 05:40 05:40 MCV 100.2 H (80-100) fL RDW Std Deviation 53.4 H (36.4-46.3) fL RDW Coeff of [place] 14.6 H (11.5-14.5) % BUN 19 H (7-18) mg/dl BUN/Creatinine Ratio 20.8 H (10-20) Diagnostic Findings CXR- Findings suggest emphysema. No focal infiltrate to suggest pneumonia. CT head-No acute intracranial abnormality. Atrophy and microvascular ischemic changes. carotid doppler- No hemodynamically significant stenosis seen within the carotid arteries. MRI brain with and without- Acute lacunar infarct in the right cerebellar hemisphere. T2/FLAIR hyperintensity suggests an infarct at T6-12 hours old. Chronic small vessel ischemic change. No abnormal enhancement. The report will be called/faxed according to standard departmental protocol for a critical finding. CTA head/neck-No significant stenosis or occlusion within the [place]. 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 Approximately 30% focal narrowing within the right carotid bulb due to the calcified plaque. No significant stenosis or occlusion within the vertebral arteries or left carotid arteries. Redemonstration of the subcentimeter subacute right cerebellar infarct. TTE- EF 60-65% no ASD
[2019-09-10] MEDS ORDERED: CLOPIDOGREL BISULFATE 75 MG TAB PO SCH (15:30)
[2019-09-10] MEDS ORDERED: STROKE PATIENT DISCHARGE STA (18:04)
--- NOTE | 2019-09-10 18:05 | Discharge Summary ---
Date of Service September 10, 2019 Admission HPI Per Admitting Provider 78-year-old female who presents the ED for evaluation of dizziness. Patient reports symptoms began yesterday and are intermittent. This morning, whenever she woke up she felt dizzy again. She also has some associated nausea. Denies vomiting. Reports she otherwise been feeling well recently. No other recent ulcers, fevers, chills. Denies chest pain or shortness of breath. Had some mild associated lightheadedness but denies any syncopal event. No abdominal pain or diarrhea. Denies urinary symptoms. Denies any changes in medications recently and has been taking medication as prescribed. No use of other dytd-[id number]-odpfxla medications. In the ED, BP was found to be significantly elevated at 206/102. Labs are unremarkable. Head CT showed old small lacunar infarcts seen within the bilateral basal ganglia and atrophy and microvascular ischemic changes, however no acute findings. Patient was given 1 dose of IV Zofran. Admission Exam Per Admitting Provider VITAL SIGNS: were reviewed as above. GENERAL:Non-toxic in appearance. SKIN: Warm dry and pink. HEAD: Normocephalic and atraumatic. OROPHARYNX: Is clear and moist NECK: Supple without lymphadenopathy or meningismus. LUNGS: Are clear. HEART: Regular rate and rhythm. ABDOMEN: Soft and nontender. EXTREMITIES: Warm and well perfused. NEUROLOGICALLY: Awake alert and oriented without focal deficit. Cranial nerves 2-12 are intact. There is no pronator drift. Cerebellar testing is within normal limits. There is no nystagmus. There is no facial droop. Speech is cl ear. Vision is grossly normal. MUSCULOSKELETAL: Good muscle tone. No evidence of trauma. Strength is symmetric. Principal Diagnosis Acute lacunar stroke Hypertensive emergency Tobacco use Discharge Exam CONSTITUTIONAL: WNWD, vitals as above, generally well-appearing EYES: EOMI bilaterally, PERRL, normal conjunctivae, no scleral icterus ENT: external ear and nose normal, oropharynx clear, MMM RESPIRATORY: clear to auscultation bilaterally, no crackles, rales or wheezes, normal respiratory effort CARDIOVASCULAR: regular rate and rhythm, S1 and 2 heard without murmurs, gallops or rubs, no JVD, no peripheral edema GASTROINTESTINAL: normal bowel sounds, soft, nontender, nondistended MUSCULOSKELETAL: strength 5/5 throughout, head is normocephalic and atraumatic SKIN: warm and dry NEUROLOGIC: patellar DTRs 2+ bilat. PERRL, EOMI, no facial palsy, no dysarthria. CN 2-12 grossly intact, no sensory deficit, normal cognition, normal speech, no tremor PSYCHIATRIC: alert cooperative and oriented to person, place and time. Language intact. Memory intact. Discharge Data Allergies Allergy/AdvReac Type Severity Reaction Status Date / Time bupropion [From Zyban] Allergy Hives Unverified 09/09/19 13:35 minocycline Allergy Rash Unverified 09/09/19 13:35 Consultations 09/09/19 13:37 ED Decision to Admit Stat 09/09/19 16:28 Consult Case Management - Discharge Planning Routine Consult Neurology Routine Ordered Studies 09/09/19 12:08 CT head/brain wo con Stat 09/09/19 13:59 MR brain wo/w con Routine 09/09/19 15:52 US carotid doppler BI Routine 09/10/19 08:51 CT angio head w con Routine CT angio neck with con Routine Hospital Course (1) Lacunar infarct, acute: (2) Hypertensive urgency: (3) Tobacco abuse: 78-year-old smoker presented with dizziness. She was admitted the hospitalist service and neurology was consulted. Work-up included an echocardiogram revealing a normal LV systolic function with an EF of 60 to 65%, mild concentric LVH, no segmental left-ventricular wall motion abnormalities noted, grade 1 diastolic dysfunction, and no evidence of ASD. She was placed on telemetry with sinus rhythm noted during her entire hospitalization and no alarm events. Additional work-up included a brain MRI revealing an acute lacunar infarct in the right cerebellar hemisphere. Chronic small vessel ischemic change was noted with no abnormal enhancement. Furthermore a carotid Doppler was performed bilaterally with no hemodynamically significant stenosis seen within the carotid arteries. Head and neck CTA was also performed revealing no significant stenosis or occlusion within the [place], a 3 mm aneurysm at the origin of the left posterior tibial artery, a 30% focal narrowing within the right carotid bulb due to calcified plaque and no significant stenosis or occlusion within the vertebral or the left carotid arteries. Three weeks of dual antiplatelet therapy was recommended with aspirin continued indefinitely. She was strongly encouraged to quit smoking. The following day her dizziness improved and she had no neurologic deficits. She had no issues swallowing or ambulating, specifically. Neurology was also recommended a 3-week follow-up with them as outpatient and did not feel that a ZIO Patch was necessary in the setting of a history suggesting a localized vascular event emerging over a period of several hours rather than an acute embolic event. Further consideration for this would be given at time of Neurology follow-up, however. Her blood pressure remained in the 150s systolic and trended up to 180 systolic at time of discharge. As she was 24 hours outside of stroke, permissive hypertension was recommended for another 24 hours, and the patient was instructed to restart her blood pressure medications the following day. At time of discharge she was hemodynamically stable and afebrile. She was mentating and ambulating at baseline and tolerating p.o. She was sent home in stable condition with close primary care follow-up recommended with a repeat check of her blood pressure specifically and to ensure she was doing well on any changed/new medications. Total Time Total Time Spent Total Time Spent (In Minutes): 60 Total Time Includes: Examination of the Patient, Discharge Planning, Medication Reconciliation and Communication With Other Providers Discharge Plan Discharge Items Patient Disposition: Home - Self-Care Reason For Visit: HTN URGENCY Discharge Diagnosis: Acute lacunar stroke Hypertensive emergency Activity: Resume your previous activity Non-emergency contact: Primary Care Provider Call non-emergency contact if: you have any medication questions, your symptoms worsen, your pain is not controlled, your pain is worsening, your pain is unusual for you, your pain is concerning for you and you have a fever Follow-up/Referrals: Thao Madrid MD [Primary Care Provider] - Diet: Low Sodium (2gm) Addtl Attending Provider Instructions: Please take all medications as instructed on discharge list below. It is recommended to follow-up with your primary care physician within one week of discharge. This will be to recheck your blood pressure and ensure you are doing well since hospital discharge. Someone from our staff will contact you tomorrow to help set this up. Please continue PLAVIX and BABY ASPIRIN (81mg) daily x 21 days, then continue ASPIRIN indefinitely. Please schedule a follow-up appointment in 4-6 weeks with [facility] Neurology. Although we discussed the possibility of looking into an event monitor from your primary care provider, the Neurologist who saw you in the hospital did not feel this is necessary at this time and will revisit this at your Neurology follow-up appointment. It is strongly recommended that you quit smoking! It was a pleasure taking care of you! Please call if you have any questions or problems. You can reach a [facility] hospitalist on duty at [facility] 24 hours a day by calling [phone]. Take care of yourself. Funmi Lugo, [facility] Hospitalist Pending Studies at Discharge: No Stand-Alone Forms: My [facility], Smoking Cessation Medications and DC Order Prescriptions: New clopidogrel 75 mg Tablet 75 mg PO QAM Qty: 20 RF: 0 atorvastatin 40 mg Tablet 40 mg PO HS Qty: 30 RF: 1 aspirin [Ecotrin Low Strength] 81 mg Tablet,Delayed Release (Dr/Ec) 81 mg PO DAILY Qty: 90 RF: 1 nicotine [Nicoderm CQ] 14 mg/24 hr patch 24 hour 1 patch TD DAILY Qty: 14 RF: 1 Continued valsartan-hydrochlorothiazide 320-12.5 mg tablet 1 tab PO DAILY RF: 0 diphenhydramine-acetaminophen [Acetaminophen PM] 25-500 mg Tablet 1 tab PO HS RF: 0 albuterol sulfate 90 mcg/actuation HFA aerosol inhaler 2 puff INHALATION Q6H PRN (Reason: Shortness Of Breath) RF: 0 Discontinued simvastatin 20 mg tablet 20 mg PO HS RF: 0 Discharge Orders: Discharge Order (Routine); Ordered 09/10/19 Ordered By: Funmi Lugo Admission Data Admit Date/Time: 09/09/19 13:50 Attending Provider: Funmi Lugo Admit Provider: Brooks Aburto Primary Care Provider: Thao Madrid Other Providers: Brooks Aburto ; Olivier Mckeon Other Interventions: Discharge Summary Assessment (RN) Last Done: 09/10/19 18:14 DC Date/Time DO NOT enter until pt leaves facility: 09/10/19 18:35
--- NOTE | 2019-09-10 18:30 | Pharmacy Report ---
Pharmacist Stroke Counseling - Date of Service September 10, 2019 - Scope: Pharmacy has been consulted to provide medication discharge counseling for this patient admitted with ischemic stroke as per the Pharmacist Discharge Counseling for Stroke Patients Protocol. - Medications on Discharge: Home Medications Medication Instructions Recorded Confirmed albuterol sulfate 2 puff INHALATION Q6H PRN 09/09/19 09/09/19 diphenhydramine-acetaminophen 1 tab PO HS 09/09/19 09/09/19 [Acetaminophen PM] valsartan-hydrochlorothiazide 1 tab PO DAILY 09/09/19 09/09/19 New Rx's Medication Instructions Recorded aspirin [Ecotrin Low Strength] 81 mg PO DAILY #90 tab 09/10/19 atorvastatin 40 mg PO HS #30 tab 09/10/19 clopidogrel 75 mg PO QAM #20 tab 09/10/19 nicotine [Nicoderm CQ] 1 patch TD DAILY #14 ea 09/10/19 - Action: The above medications, specifically ones for stroke treatment/prophylaxis, have been reviewed in detail with the patient and/or patient sales representative publications(s) prior to discharge. This includes indication, common adverse reactions, drug interactions, and medication administration. Medication counseling has been employed using the teach-back method to ensure understanding. - Outcome: The patient and/or patient sales representative publications(s) have demonstrated understanding of the medications. Please note, they are aware that the pharmacist will call them within 72 hours post-discharge to confirm that the appropriate medications are being taken and answer any further medication related questions the patient might have at that time. Contact information Individual to be contacted: Mayuri Relationship to patient (if applicable): n/a Phone number: Best time to call: [phone] [phone] Additional comments: D/w pt ASA 81mg + Plavix 75mg x21 D then ASA 81mg lifetime. D/w pt common side effects of DAPT including monitor for s/sx of bleeding. Also counseled pt on change from simvastatin to atorvastatin. Answered all other questions. Thank you for allowing pharmacy to be involved in the care of this patient. Please call [phone] or [phone] with any additional questions
[2019-09-10] MEDS ORDERED: ATORVASTATIN 40 MG TAB PO SCH (21:00)
--- NOTE | 2019-09-12 10:59 | Pharmacy Report ---
Pharmacist Post D/C Phone Note - Phone Note: Date of phone call: September 12, 2019. Individual with whom pharmacist spoke to: BRUNILDA MITCHELL The following questions were reviewed during the phone call with responses listed below each: Can you tell me the medications that you are currently taking as well as when and how you take each medication? -See Table Below When have you missed any doses of your medications? - No What side effects are you having from your medications, specifically, the new medications you were started on? - No side effects at this time What questions do you have about your medications? - None for now What problems are you having obtaining your medications? - No problems obtaining When is your next appointment with your primary care doctor? - Uncertain, patient said they were going to call her to set up an appointment, if they did not call her today, she said that she would call them As per the Pharmacist Discharge Counseling for Stroke Patients Protocol, this phone call has been completed within 72 hours of discharge. Thank you for allowing us to be involved in the care of this patient. Thank you for allowing us to be involved in the care of this patient. - Home Medications: Home Medications Medication Instructions Recorded Confirmed albuterol sulfate 2 puff INHALATION Q6H PRN 09/09/19 09/09/19 diphenhydramine-acetaminophen 1 tab PO HS 09/09/19 09/09/19 [Acetaminophen PM] valsartan-hydrochlorothiazide 1 tab PO DAILY 09/09/19 09/09/19 New Rx's Medication Instructions Recorded aspirin [Ecotrin Low Strength] 81 mg PO DAILY #90 tab 09/10/19 atorvastatin 40 mg PO HS #30 tab 09/10/19 clopidogrel 75 mg PO QAM #20 tab 09/10/19 nicotine [Nicoderm CQ] 1 patch TD DAILY #14 ea 09/10/19
== END 2019-09-10 18:35 | disposition home or self-care (01) ==
LOC: 2N 11:25 → ED 11:25 → 2N 14:31 → SUATTDRO 22:35

== ENCOUNTER 2019-10-02 10:11 | Observation (INO) ==
[2019-10-02 11:15] LABS: Basophils # (auto) 0.07 K/uL (0-0.2); Basophils % (auto) 0.8 %; Eosinophils # (auto) 0.52 K/uL (0-0.5); Eosinophils % (auto) 5.6 %; Hematocrit (blood only) 47.6 % (37-47); Hemoglobin 16.5 g/dL (12.0-16.0); Immature Granulocytes # (auto) 0.03 K/uL (0.00-0.02); Immature Granulocytes % (auto) 0.3 %; Lymphocytes # (auto) 2.42 K/uL (1.2-3.4); Mean Corpuscular Hgb Conc 34.7 g/dL (32-36); Mean Corpuscular Volume 97.9 fL (80-100); Mean Platelet Volume 9.7 fL (7.4-10.4); Monocytes # (auto) 0.55 K/uL (0.11-0.59); Monocytes % (auto) 5.9 %; Neutrophils % (auto) 61.4 %; Platelet Count 252 K/uL (130-400); RDW Coefficient of Variation 14.2 % (11.5-14.5); RDW Standard Deviation 50.5 fL (36.4-46.3); Red Blood Count 4.86 M/uL (4.2-5.4); White Blood Count 9.29 K/uL (4.8-10.8)
[2019-10-02 11:31] LABS: Partial Thromboplastin Ratio 0.9; Partial Thromboplastin Time 25.3 Seconds (21.0-31.0)
[2019-10-02 11:45] LABS: Alanine Aminotransferase 21 U/L (12-78); Albumin Level 3.6 gm/dl (3.4-5.0); BUN Creatinine Ratio 16.9 (10-20); Blood Urea Nitrogen 17 mg/dl (7-18); Calcium 9.3 mg/dl (8.5-10.1); Carbon Dioxide 30 mmol/L (21-32); Chloride 104 mmol/L (98-107); Creatinine Clr Calc Pharmacy 45.1 ml/min; Est GFR (African American) 60.6; Est GFR (Non-African American) 52.3; Glucose 102 mg/dl (70-99); Sodium 140 mmol/L (136-145)
--- NOTE | 2019-10-02 11:47 | CT Scan Report ---
CT orbit BI wo con CT DOSE: CLINICAL HISTORY: Blurred vision, headache. Possible orbital hematoma. TECHNIQUE: Unenhanced images were obtained in the axial plane. Sagittal and coronal reformatted image s were acquired. A dose lowering technique was utilized adhering to the principles of ALARA. COMPARISON STUDY: None. FINDINGS: No fractures are visualized. No orbital masses are visualized. There is no evidence of an orbital hematoma. There is no exophthalmos. The extraocular muscles appear symmetric. IMPRESSION: 1. No evidence of orbital mass or hematoma. ACT 112: Negative or not required by law. Electronically signed by: Paresh Andujar M.D. 10/02/2019 11:46 AM
[2019-10-02 11:53] LABS: Albumin Globulin Ratio 0.9 (0.9-2); Alkaline Phosphatase 82 U/L (45-117); Bilirubin,Total 0.6 mg/dl (0.2-1); Globulin 3.9 gm/dl (2.5-4.0); Total Protein 7.5 gm/dl (6.4-8.2); Troponin I < 0.015 ng/ml (0-0.045)
--- NOTE | 2019-10-02 11:57 | CT Scan Report ---
CT head/brain wo con CLINICAL HISTORY: Blurred vision. Possible stroke. COMPARISON STUDY: 09/09/2019 TECHNIQUE: Axial CT of the brain is performed from the vertex to the skull base. IV contrast was not administered for this examination. A dose lowering technique was utilized adhering to the principles of ALARA. CT DOSE: 1110.40 mGy.cm FINDINGS: No intra or extra-axial mass lesions are visualized. There is no CT evidence of acute cortical infarc tion. There is no evidence of midline shift. There is no acute hemorrhage. No calvarial fractures ar e visualized. 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 There are patchy hypod ensities within the white matter likely on a small vessel basis. 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 There is no evidence of pathologic ventricular dilatation. There is no evidence of acute sinusitis IMPRESSION: No acute intracranial findings ACT 112: Negative or not required by law. Electronically signed by: Paresh Andujar M.D. 10/02/2019 11:56 AM
[2019-10-02] MEDS ORDERED: LABETALOL HCL IV 5 MG/ML 20ML IV STA (12:16)
[2019-10-02 12:25] LABS: Potassium 3.9 mmol/L (3.5-5.1)
--- NOTE | 2019-10-02 12:50 | Electrocardiogram Report ---
Test Reason : Blood Pressure : / mmHG Vent. Rate : 075 BPM Atrial Rate : 075 BPM P-R Int : 148 ms QRS Dur : 078 ms QT Int : 396 ms P-R-T Axes : 076 070 080 degrees QTc Int : 442 ms Normal sinus rhythm with sinus arrhythmia Normal ECG When compared with ECG of 09-SEP-2019 12:18, No significant change was found Confirmed by Frederick Griffin ([id number]) on 10/02/2019 12:49:46 PM Referred By: REFERRED SELF Confirmed By:Frederick Griffin
--- NOTE | 2019-10-02 13:37 | Discharge Summary ---
Date of Service October 02, 2019 Discharge Data Allergies Allergy/AdvReac Type Severity Reaction Status Date / Time bupropion [From Zyban] Allergy Hives Unverified 10/02/19 10:57 minocycline Allergy Rash Unverified 10/02/19 10:57 Consultations 10/02/19 12:16 ED Decision to Admit Stat Ordered Studies 10/02/19 10:50 CT head/brain wo con Stat CT orbit BI wo con Stat Discharge Plan Visit Data Patient Disposition: Being Evaluated by Hospitalist Forms Stand Alone Forms: My [facility] Prescriptions Prescriptions: No Action valsartan-hydrochlorothiazide 320-12.5 mg tablet 1 tab PO DAILY RF: 0 diphenhydramine-acetaminophen [Acetaminophen PM] 25-500 mg Tablet 1 tab PO HS RF: 0 albuterol sulfate 90 mcg/actuation HFA aerosol inhaler 2 puff INHALATION Q6H PRN (Reason: Shortness Of Breath) RF: 0 atorvastatin 40 mg Tablet 40 mg PO HS Qty: 30 RF: 1 aspirin [Ecotrin Low Strength] 81 mg Tablet,Delayed Release (Dr/Ec) 81 mg PO DAILY Qty: 90 RF: 1 Referrals Referrals: Thao Madrid MD [Primary Care Provider] -
--- NOTE | 2019-10-02 13:51 | History & Physical Report ---
Date of Service October 02, 2019 Assessment & Plan (1) Hypertensive emergency: (2) AKIKO (subconjunctival hemorrhage): (3) Blurred vision, left eye: (4) Tobacco abuse: (5) DVT prophylaxis: Continue Lipitor, Hold ASA, Continue Losartan HCT, MRI Brain, Neuro Eval, Tele Obs DC 1-2 days History of Present Illness 78-year-old white female with a past medical history of hypertension, hyperlipidemia, TIA 3 weeks ago presents with left conjunctival hemorrhage and blurred vision that started today. She measured her blood pressure at home and it was 200/116 and in the emergency room it was 230 systolic at its height. She complains of mild blurry vision and fullness in the left eye. CT scan showed no bleeding. She is being treated for hypertensive urgency and we will rule out a CVA. Dr. Mckeon from neurology will see her in consult and she can follow-up with ophthalmology as an outpatient. Bleeding in the conjunctiva does not penetrate the iris. 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 Primary Care Provider: Thao Madrid MD Allergies Allergy/AdvReac Type Severity Reaction Status Date / Time bupropion [From Zyban] Allergy Hives Unverified 10/02/19 10:57 minocycline Allergy Rash Unverified 10/02/19 10:57 Home Medications Home Medications Medication Instructions Recorded Confirmed Type albuterol sulfate 2 puff INHALATION Q6H PRN 09/09/19 10/02/19 History diphenhydramine-acetaminophen 1 tab PO HS 09/09/19 10/02/19 History [Acetaminophen PM] valsartan-hydrochlorothiazide 1 tab PO DAILY 09/09/19 10/02/19 History aspirin [Ecotrin Low Strength] 81 mg PO DAILY #90 tab 01/21/20 02/12/20 Rx atorvastatin 40 mg PO HS #30 tab 09/10/19 10/02/19 Rx Past Med/Surg History Medical History CKD (chronic kidney disease), stage III COPD (chronic obstructive pulmonary disease) Hypertension Tobacco abuse Surgical History History of hysterectomy Family History Mother Colorectal cancer Hypertension Father Kidney disease Hypertension Social History Preferred Language: [place]ian Communication Ability: Effective Beliefs That Will Affect Care: None marital status: single Current Living Situation: Alone Current Living Situation Comment: SON LIVES RIGHT NEXT DOOR current occupational status: retired Feels Safe at Home: Yes Smoking Status: Light tobacco smoker Tobacco Type: cigarettes ; packs per day: 0.5 ; Cigarettes Per Day: 5 ; Hx Alcohol Use: Yes Alcohol type: hard liquor Hx Substance Use: No Physical Exam Physical Exam: ROS-No Headache, No Visual Changes, No Nausea, No Vomiting, No Fever, No Chills, No Neck Pain or Stiffness, No Chest Pain, No Palpitations, No SOB, No FISCHER, No Cough, No Sputum, No Wheezing, No Abdominal Pain, No Diarrhea, No Hematemesis, No Hemoptysis, No Unexpected Weight Loss, No Flank pain, No Melena, No Hematochezia, No Frequency, No Urgency, No Burning, No Hematuria, No Rashes, No Diaphoresis. Appetite is Normal, +Blurry Vision L, Eye fullness L Physical Exam Gen-AAO x 3, NAD, Afebrile Head-NCAT, EOMI, PERRLA, Anicteric Sclera, L Conjunctival Bleed wo penetration to Iris, No Posterior Pharyngeal Erythema Neck-Supple, No JVD, No Thyromegaly, No Masses, No LAD, No Bruits Lungs-Clear to Auscultation Bilaterally, No Rales, No Rhonchi, No Wheezing, No Crepitus Chest-No S4, +S1, +S2, No S3, No Murmurs, No Rubs, No Gallops, No Ectopy Abdomen-Soft, Bowel Sounds Present, Non Tender, Non Distended, No Hepatomegaly, No Splenomegaly, No Palpable Masses, No Rebound, No Rigidity, No Guarding Musculoskeletal-Full Range of Motion Bilaterally, No CVAT Extremities-No Cyanosis, No Clubbing, No Edema Nuero-Cranial Nerves II-XII grossly intact, Motor WNL, DTRs WNL, Strength WNL, Non Focal Psych-Normal Mood Results & Data Vital Signs (Past 12 Hours) Vital Signs Temp Pulse Pulse Resp BP BP Pulse Ox 10/02/19 13:30 58 L 14 189/78 H 93 10/02/19 13:00 60 14 187/78 H 94 10/02/19 12:58 60 16 187/90 H 94 10/02/19 12:30 63 9 L 190/96 H 94 10/02/19 12:09 80 16 210/132 H 94 10/02/19 11:41 73 15 209/96 H 95 10/02/19 11:06 81 16 167/97 H 94 10/02/19 10:22 36.4 C L 88 18 175/118 H 93 Allergies bupropion [From Zyban] Allergy (Unverified 10/02/19 10:57) Hives minocycline Allergy (Unverified 10/02/19 10:57) Rash Height/Weight/Isolation Height 5 ft 8 in Weight 67.5 kg Chemistry 10/02/19 10/02/19 11:05 12:01 Sodium 140 Potassium 3.9 Chloride 104 Carbon Dioxide 30 Anion Gap 6.0 BUN 17 Creatinine 1.02 Glucose 102 H Code Status & VTE Plan VTE Prophylaxis Plan VTE Prophylaxis will be ordered: Yes (1) AKIKO (subconjunctival hemorrhage) Laterality: left Qualified Code(s): H11.32 - Conjunctival hemorrhage, left eye
[2019-10-02] MEDS ORDERED: LABETALOL HCL IV 5 MG/ML 20ML IV PRN (16:53)
[2019-10-02] MEDS ORDERED: POLYETHYLENE (MIRALAX) 17 GM PACK PO PRN (16:53)
[2019-10-02] MEDS ORDERED: ONDANSETRON INJ 2 MG/ML 2 ML VIAL IV PRN (16:53)
[2019-10-02] MEDS ORDERED: ACETAMINOPHEN 325 MG TAB PO PRN (16:53)
[2019-10-02] MEDS ORDERED: ALUMINUM/MAGNESIUM SUSP 30 ML UDC PO PRN (16:53)
--- NOTE | 2019-10-02 17:46 | Emergency Department Note ---
Entered by Arnoldo Madrid acting as a scribe for History of Present Illness General Chief complaint: Hypertension Stated complaint: EYE PAIN Time Seen by Provider: 10/02/19 10:36 Source: patient Limitations: no limitations History of Present Illness Onset (ago): hour(s) (this morning) Location: eyes Pain Consistency: + constant Quality: + other (redness) Associated symptoms: + denies other symptoms (straining, abdominal pain, numbness, falls, trauma to left eye, tearing from left eye), + headaches and + other (blurry vision); no chest pain, no cough, no shortness of breath and no weakness Treatments prior to arrival: other (BP medication) The patient is a 78 year old female who presents to the Emergency Room with complaints of constant hypertension starting this morning. The patient states she woke up this morning and noticed she had blurry vision in her left eye. She states she noticed her left eye was red this morning. She states she took her BP and it was 200/116 at home. She notes she has a slight headache on her left side. The patient denies coughing, having chest pain, SOB, abdominal pain, tearing from her right eye, straining, numbness or weakness on one side of the body, falling, and injuring her left eye. She denies double vision. She states her left eye was fine last night. She states she took her BP medication at home. She notes her unsteadiness from her previous stroke has resolved. Home Medications Home Medications Medication Instructions Recorded Confirmed Type albuterol sulfate 2 puff INHALATION Q6H PRN 09/09/19 10/02/19 History diphenhydramine-acetaminophen 1 tab PO HS 09/09/19 10/02/19 History [Acetaminophen PM] valsartan-hydrochlorothiazide 1 tab PO DAILY 09/09/19 10/02/19 History aspirin [Ecotrin Low Strength] 81 mg PO DAILY #90 tab 09/10/19 10/02/19 Rx atorvastatin 40 mg PO HS #30 tab 09/10/19 10/02/19 Rx Allergies Allergy/AdvReac Type Severity Reaction Status Date / Time bupropion [From Zyban] Allergy Intermediate Hives Verified 10/02/19 17:07 minocycline Allergy Intermediate Rash Verified 10/02/19 17:07 Past Med/Surg History Medical History CKD (chronic kidney disease), stage III COPD (chronic obstructive pulmonary disease) Hypertension Tobacco abuse Surgical History History of hysterectomy Family History Mother Colorectal cancer Hypertension Father Kidney disease Hypertension Social History Preferred Language: Thai Communication Ability: Effective 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 Beliefs That Will Affect Care: None marital status: single Current Living Situation: Alone Current Living Situation Comment: SON LIVES RIGHT NEXT DOOR current occupational status: retired Other Information That Helps Us Care for You: No Feels Safe at Home: Yes Safety Concerns: Feels Safe At This Time Smoking Status: Light tobacco smoker Tobacco Type: cigarettes ; packs per day: 0.5 ; Cigarettes Per Day: 5 ; Do You Dip or Chew Tobacco: No ; Second Hand Exposure: No ; Tobacco Cessation Education Requested by Patient: No Hx Alcohol Use: Yes Alcohol type: hard liquor Hx Substance Use: No Review of Systems See HPI for pertinent positives & negatives. and A total of 10 systems reviewed and were otherwise negative Physical Exam Vital Signs Vital Signs - 24 hr 10/02/19 10:22 10/02/19 11:06 10/02/19 11:41 Temperature 36.4 C L Temperature Source Oral Pulse Rate 88 73 Pulse Rate [Apical] 81 Pulse Rate from SpO2 Sensor 71 Respiratory Rate 18 16 15 Respiratory Effort / Characteristics Non-Labored Spontaneous Non-Labored Spontaneous Respiratory Depth Normal Normal Respiratory Pattern Regular Blood Pressure 175/118 H 209/96 H Blood Pressure [Right Arm] 167/97 H Blood Pressure Mean 137 148 Blood Pressure Mean [Right Arm] 120 Blood Pressure Position Sitting Pulse Oximetry 93 94 95 Oxygen Delivery Method Room Air Room Air Sepsis Recent Fever Within 48 Hours No Sepsis New/Unexplained Change in Mental Status No Sepsis Action Taken by Nursing No Action Required 10/02/19 12:09 10/02/19 12:30 10/02/19 12:58 Temperature Temperature Source Pulse Rate 80 63 60 Pulse Rate [Apical] Pulse Rate from SpO2 Sensor 76 64 58 L Respiratory Rate 16 9 L 16 Respiratory Effort / Characteristics Respiratory Depth Respiratory Pattern Blood Pressure 210/132 H 190/96 H 187/90 H Blood Pressure [Right Arm] Blood Pressure Mean 172 137 136 Blood Pressure Mean [Right Arm] Blood Pressure Position Pulse Oximetry 94 94 94 Oxygen Delivery Method Sepsis Recent Fever Within 48 Hours Sepsis New/Unexplained Change in Mental Status Sepsis Action Taken by Nursing 10/02/19 13:00 10/02/19 13:30 Temperature Temperature Source Pulse Rate 60 58 L Pulse Rate [Apical] Pulse Rate from SpO2 Sensor 60 58 L Respiratory Rate 14 14 Respiratory Effort / Characteristics Respiratory Depth Respiratory Pattern Blood Pressure 187/78 H 189/78 H Blood Pressure [Right Arm] Blood Pressure Mean 97 116 Blood Pressure Mean [Right Arm] Blood Pressure Position Pulse Oximetry 94 93 Oxygen Delivery Method Sepsis Recent Fever Within 48 Hours Sepsis New/Unexplained Change in Mental Status Sepsis Action Taken by Nursing Constitutional: Vital signs reviewed. Eyes: Pupils are equal round reactive to light. Subconjunctival hemorrhage to the left eye medially and inferiorly. Limited undilated fundoscopic exam without obvious abnormalities. No exophthalmos. ENT: Pharynx is clear without erythema or exudate. Mucous membranes are moist. Neck supple without meningeal signs. Respiratory: Clear to auscultation bilaterally. Breath sounds are equal bilaterally. Cardiovascular: Regular rate and rhythm. No rubs or gallops. GI: Soft, nondistended and nontender. Bowel sounds are present. Musculoskeletal: No peripheral edema. No lower extremity tenderness. Integumentary: No cyanosis. Neurological: The patient is awake and alert. Cranial nerves II-XII are intact. Motor is 5 out of 5 all extremities. Sensation is intact to light touch all extremities. Normal speech. No pronator drift. No limb ataxia. No dysdiadochokinesia. Psychiatric: Normal affect. Procedures Free Text Procedures Slit Lamp Examination Indication: Left eye redness Slit lamp examination was performed in the standard fashion. Cornea appeared clear. Anterior chamber within normal limits. There is evidence of subconjunctival hemorrhage in the inferior portion in the medial portion. No discharge present. Fluorescein examination performed and revealed no uptake. No cells or flare were noted. No foreign bodies noted. Negative Diego sign. The patient tolerated the procedure well without complication. Course Course 1041: The patient was evaluated in room C2B, and a complete history and physical examination were performed. 1210: I reevaluated the patient. Her BP increased to 210/132. I performed a SLIT lamp exam with puff tonometer which showed 15 on the right and 16 on the left. OS 20/30. OD 20/25. I discussed the test results with her and she is agreeable to hospitalization. 1227: I discussed the patient's case with Fay Last PA-C. Dr. [facility] Hospitalist will evaluate the patient for further management. 1255: I reevaluated the patient. Her current BP is 187/90. She does not have any specific complaints right now. Administered Medications Discontinued Medications Labetalol HCl (Normodyne) 10 mg IV NOW STA Stop: 10/02/19 12:17 Last Admin: 10/02/19 12:33 Dose: 10 mg Documented by: [id number] Cosigned by: [id number] Critical Care Time Total Critical Care Time: 35 I have personally spent approximately 35 minutes of critical care time in the direct management of this patient. This includes bedside care, interpretation of diagnostic studies, and testing, discussion with consultants, patient, and family members, and other required patient management activities. These minutes are in excess of all separately billable procedures. Medical Decision Making Differential Diagnosis Differential Diagnosis includes but is not limited to subconjunctival hemorrhage, poorly controlled hypertension, kidney disease, CVA, and glaucoma. Medical Records Attestation: I reviewed the patient's medical records. The patient was admitted on September 09 for dizziness. She had a lacunar infarct and hypertensive emergency. MRI showed an acute lacunar infarct in the right cerebellar hemisphere. Home Medications Current Medication List: was personally reviewed by me Laboratory Data Attestation: I reviewed the patient's lab results. Result diagrams: 10/02/19 11:05 10/02/19 12:01 Lab Results 10/02/19 10/02/19 10/02/19 Range/Units 11:05 11:05 11:05 WBC 9.29 (4.8-10.8) K/uL RBC 4.86 (4.2-5.4) M/uL Hgb 16.5 H (12.0-16.0) g/dL Hct 47.6 H (37-47) % MCV 97.9 (80-100) fL MCH 34.0 (25-34) pg MCHC 34.7 (32-36) g/dL RDW Std Deviation 50.5 H (36.4-46.3) fL RDW Coeff of Payton 14.2 (11.5-14.5) % Plt Count 252 (130-400) K/uL MPV 9.7 (7.4-10.4) fL Immature Gran % (Auto) 0.3 % Neut % (Auto) 61.4 % Lymph % (Auto) 26.0 % Shelby % (Auto) 5.9 % Eos % (Auto) 5.6 % Baso % (Auto) 0.8 % Immature Gran # (Auto) 0.03 H (0.00-0.02) K/uL Neut # (Auto) 5.70 (1.4-6.5) K/uL Lymph # (Auto) 2.42 (1.2-3.4) K/uL Shelby # (Auto) 0.55 (0.11-0.59) K/uL Eos # (Auto) 0.52 H (0-0.5) K/uL Baso # (Auto) 0.07 (0-0.2) K/uL PT 10.0 (9.0-12.0) Seconds INR 1.0 (0.9-1.1) APTT 25.3 (21.0-31.0) Seconds PTT Ratio 0.9 Sodium 140 (136-145) mmol/L Potassium (3.5-5.1) mmol/L Chloride 104 (98-107) mmol/L Carbon Dioxide 30 (21-32) mmol/L Anion Gap 6.0 (3-11) BUN 17 (7-18) mg/dl Creatinine 1.02 (0.6-1.2) mg/dl Est Cr Clr Drug Dosing 45.1 ml/min Est GFR ( Amer) 60.6 Est GFR (Non-Af Amer) 52.3 BUN/Creatinine Ratio 16.9 (10-20) Glucose 102 H (70-99) mg/dl Calcium 9.3 (8.5-10.1) mg/dl Total Bilirubin 0.6 (0.2-1) mg/dl AST (15-37) U/L ALT 21 (12-78) U/L Alkaline Phosphatase 82 (45-117) U/L Troponin I < 0.015 (0-0.045) ng/ml Total Protein 7.5 (6.4-8.2) gm/dl Albumin 3.6 (3.4-5.0) gm/dl Globulin 3.9 (2.5-4.0) gm/dl Albumin/Globulin Ratio 0.9 (0.9-2) 10/02/19 Range/Units 12:01 WBC (4.8-10.8) K/uL RBC (4.2-5.4) M/uL Hgb (12.0-16.0) g/dL Hct (37-47) % MCV (80-100) fL MCH (25-34) pg MCHC (32-36) g/dL RDW Std Deviation (36.4-46.3) fL RDW Coeff of Payton (11.5-14.5) % Plt Count (130-400) K/uL MPV (7.4-10.4) fL Immature Gran % (Auto) % Neut % (Auto) % Lymph % (Auto) % Shelby % (Auto) % Eos % (Auto) % Baso % (Auto) % Immature Gran # (Auto) (0.00-0.02) K/uL Neut # (Auto) (1.4-6.5) K/uL Lymph # (Auto) (1.2-3.4) K/uL Shelby # (Auto) (0.11-0.59) K/uL Eos # (Auto) (0-0.5) K/uL Baso # (Auto) (0-0.2) K/uL PT (9.0-12.0) Seconds INR (0.9-1.1) APTT (21.0-31.0) Seconds PTT Ratio Sodium (136-145) mmol/L Potassium 3.9 (3.5-5.1) mmol/L Chloride (98-107) mmol/L Carbon Dioxide (21-32) mmol/L Anion Gap (3-11) BUN (7-18) mg/dl Creatinine (0.6-1.2) mg/dl Est Cr Clr Drug Dosing ml/min Est GFR ( Amer) Est GFR (Non-Af Amer) BUN/Creatinine Ratio (10-20) Glucose (70-99) mg/dl Calcium (8.5-10.1) mg/dl Total Bilirubin (0.2-1) mg/dl AST 15 (15-37) U/L ALT (12-78) U/L Alkaline Phosphatase (45-117) U/L Troponin I (0-0.045) ng/ml Total Protein (6.4-8.2) gm/dl Albumin (3.4-5.0) gm/dl Globulin (2.5-4.0) gm/dl Albumin/Globulin Ratio (0.9-2) Imaging Data Radiologist's Impression: Radiology results as stated below per my review and the radiologist's interpretation: CT head/brain wo con CLINICAL HISTORY: Blurred vision. Possible stroke. COMPARISON STUDY: 09/09/2019 TECHNIQUE: Axial CT of the brain is performed from the vertex to the skull base. IV contrast was not administered for this examination. A dose lowering technique was utilized adhering to the principles of ALARA. CT DOSE: 1110.40 mGy.cm FINDINGS: No intra or extra-axial mass lesions are visualized. There is no CT evidence of acute cortical infarction. There is no evidence of midline shift. There is no acute hemorrhage. No calvarial fractures are visualized. 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 There are patchy hypodensities within the white matter likely on a small vessel basis. 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 There is no evidence of pathologic ventricular dilatation. There is no evidence of acute sinusitis IMPRESSION: No acute intracranial findings ACT 112: Negative or not required by law. Electronically signed by: Paresh Andujar M.D. 10/02/2019 11:[address] orbit BI wo con CT DOSE: CLINICAL HISTORY: Blurred vision, headache. Possible orbital hematoma. TECHNIQUE: Unenhanced images were obtained in the axial plane. Sagittal and coronal reformatted images were acquired. A dose lowering technique was utilized adhering to the principles of ALARA. COMPARISON STUDY: None. FINDINGS: No fractures are visualized. No orbital masses are visualized. There is no evidence of an orbital hematoma. There is no exophthalmos. The extraocular muscles appear symmetric. IMPRESSION: 1. No evidence of orbital mass or hematoma. ACT 112: Negative or not required by law. Electronically signed by: Paresh Andujar M.D. 10/02/2019 11:46 AM ECG Data Attestation: I personally reviewed and interpreted this ECG as follows: Indication: + other (hypertension) Rate (beats per minute): 75 Rhythm: + normal sinus ECG ST segments: no ST elevation ECG Findings: + Other (Wavy baseline limiting interpretation); no PVCs Comparison ECG Date: from (09/09/19) Change: no significant change Blood Pressure Blood Pressure Findings: Elevated blood pressure Blood Pressure Disposition: further management by hospitalist MDM Narrative I did evaluate the patient as noted above. The patient recently had a stroke and is presenting with severely elevated blood pressure at home and blurring of her vision in the left eye. She also has on exam a subconjunctival hemorrhage. IV access was established. The patient was placed on a continuous certified ethical hacker. I did order and personally review the patient's 12-lead EKG as described above. There is no evidence of acute ischemia. I did order and review the patient's blood work as noted in the electronic medical record. Her labs are unremarkable. She is not anemic. She has no leukocytosis. CRP shows no acute abnormality or electrolyte abnormality. I did order a CT of the head and orbits. I did review the images myself as well as the radiology report as described above. There is no acute intracranial abnormality. No orbital hematoma. I did reassess the patient. That she does complain of continued blurring of her vision. Her visual acuity is 20/30 OS and 20/25 OD. I did obtain intraocular pressures using a puff tonometer which was 15 OD and 16 OS. Slit lamp examination as described above was unremarkable other than subconjunctival hemorrhage. Her blood pressure was still significantly elevated. She did take her blood pressure meds at home. Because of the continued elevation and rupture of her conjunctival vessel I did feel it is i mportant to lower her blood pressure with parenteral therapy. She was given labetalol 10 mg IV and her blood pressure did improve significantly. I did discuss the test results with the patient and recommended hospitalization for further treatment and monitoring. I did discuss the case with the hospitalist and ed case manager. Impression & Plan Hypertensive emergency, AKIKO (subconjunctival hemorrhage), Blurred vision, left eye Discharge Plan Visit Data *Final* Discharge Date/Time: 10/02/19 16:37 Chief Complaint: Hypertension Stated Complaint: EYE PAIN ED Provider: Carter Flores Discharge Problem: Hypertensive emergency, AKIKO (subconjunctival hemorrhage), Blurred vision, left eye Patient Disposition: Admitted As Inpatient Discharge Instructions Interventions: ED Discharge Assessment Last Done: 10/02/19 16:37 Discharge Problem: AKIKO (subconjunctival hemorrhage) Qualifiers: Laterality: left Qualified Code(s): H11.32 - Conjunctival hemorrhage, left eye The scribe's documentation has been prepared under my direction and personally reviewed by me in its entirety. I confirm that the note above accurately r eflects all work, treatment, procedures, and medical decision making performed by me.
[2019-10-02] MEDS: VALSARTAN/HCTZ 320/12.5 MG TAB PO SCH (18:36)
--- NOTE | 2019-10-02 20:53 | Magnetic Resonance Report ---
MRI OF THE BRAIN WITHOUT CONTRAST CLINICAL HISTORY: HTN urgency, recent TIA COMPARISON STUDY: MRI of the brain September 09, 2019. Head CT performed earlier today. TECHNIQUE: Utilizing a 1.5 Danyelle magnet and dedicated coil, multiplanar, multiecho imaging of the bra in was performed without IV contrast. FINDINGS: There are no foci of restricted diffusion to suggest acute infarct. There has been expected evolution of the right cerebellar lacunar infarct shown on MRI of September 09, 2019. Ventricular syst em is stable. Basilar cisterns are patent. There are no extra axial collections. Flow-voids for the m ajor intracranial vessels are present. No intracranial masses are identified on this unenhanced exam. There is made of moderate atrophy. Extensive white matter T2 hyperintense foci suggest small vessel disease. Several old lacunar infarcts are noted within the right basal ganglia. IMPRESSION: 1. No acute intracranial findings. 2. Several old lacunar infarcts within the right cerebellar hemisphere and right basal ganglia. ACT 112: Negative or not required by law. Electronically signed by: Pawan Leal M.D. 10/02/2019 8:52 PM
[2019-10-02] MEDS ORDERED: ACETAMINOPHEN 500 MG TAB PO SCH (21:00)
[2019-10-02] MEDS ORDERED: ATORVASTATIN 40 MG TAB PO SCH (21:00)
[2019-10-03 05:32] LABS: Hematocrit (blood only) 43.6 % (37-47); Hemoglobin 14.6 g/dL (12.0-16.0); Mean Corpuscular Hemoglobin 33.6 pg (25-34); Mean Corpuscular Hgb Conc 33.5 g/dL (32-36); Mean Corpuscular Volume 100.5 fL (80-100); Mean Platelet Volume 9.4 fL (7.4-10.4); Platelet Count 195 K/uL (130-400); RDW Coefficient of Variation 14.2 % (11.5-14.5); RDW Standard Deviation 52.4 fL (36.4-46.3); Red Blood Count 4.34 M/uL (4.2-5.4); White Blood Count 7.18 K/uL (4.8-10.8)
[2019-10-03 05:57] LABS: BUN Creatinine Ratio 16.4 (10-20); Calcium 9.1 mg/dl (8.5-10.1); Creatinine Clr Calc Pharmacy 48.4 ml/min
[2019-10-03] MEDS: VALSARTAN/HCTZ 320/12.5 MG TAB PO SCH (08:47)
--- NOTE | 2019-10-03 14:12 | Neurology Consultation ---
Date of Consultation October 03, 2019 Assessment & Plan (1) Hypertensive emergency: 1. MRI - no acute findings 2. CT orbits no acute hematoma 3. optimize HTN, HLD, LDL <70 would reduce blood pressure gradually 4. PCP for further management 5. continue aspirin 81 mg daily Plavix already stopped do not restart 6. ophthalmology exam as outpatient 7. no need for neurology follow up at this point can discharge once medically stable Present on Admission?: Yes (2) AKIKO (subconjunctival hemorrhage): Present on Admission?: Yes (3) Blurred vision, left eye: Present on Admission?: Yes Supervising Physician Co-Signing Physician Notes I have seen and discussed above patient with Dr Olivier Mckeon, neurology I know this woman from her prior recent admission here for a small virtually asymptomatic cerebellar small vessel infarction occurring in the setting of hypertension and treated with aspirin and Plavix with the Plavix having been discontinued about a week ago. 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 She certainly does not describe any floaters positive or negative scotoma and feels her vision is back to baseline so I think the odds of us finding anything through ophthalmology evaluation are pretty slim but needs to be done Otherwise exam is normal, her blood pressure seems to be coming down nicely and she can be discharged home once the internal medicine group feels she is stable on aspirin and whenever new antihypertensive agents are felt to be necessary to begin an attempt to prevent these hypertensive surges that have been going on for some time now Neurology will sign off the case and will see her on an as-needed outpatient basis Olivier Mckeon MD History of Present Illness Reason for Consultation: TIA Requesting Physician: Olivier Her MD Attending Physician: Olivier Her MD History of Present Illness Mayuri is a 78 year old female who presents to [facility] ED with complaints of constant hypertension starting this morning. She woke up this morning and noticed she had blurry vision in her left eye. She states she noticed her left eye was red this morning. She took her BP and it was 200/116 at home. She notes she has a slight headache on her left side. She was seen on 09/10/2019 for stroke and was placed on aspirin 81 mg and Plavix 75 mg x 21 day. She stopped the plavix as instructed 3 days ago. Currently she has no blurred vision and her blood pressure is more controlled but not optimized. denies CP, SOB, abdominal pain, one sided weakness, numbness tingling bowel or bladder issues, falls, trauma to eye, N, V, double vision or current blurred vision. Allergies Allergy/AdvReac Type Severity Reaction Status Date / Time bupropion [From Zyban] Allergy Intermediate Hives Verified 10/02/19 17:07 minocycline Allergy Intermediate Rash Verified 10/02/19 17:07 Home Medications Home Medications Medication Instructions Recorded Confirmed Type albuterol sulfate 2 puff INHALATION Q6H PRN 09/09/19 10/02/19 History diphenhydramine-acetaminophen 1 tab PO HS 09/09/19 10/02/19 History [Acetaminophen PM] valsartan-hydrochlorothiazide 1 tab PO DAILY 09/09/19 10/02/19 History aspirin [Ecotrin Low Strength] 81 mg PO DAILY #90 tab 09/10/19 10/02/19 Rx atorvastatin 40 mg PO HS #30 tab 09/10/19 10/02/19 Rx Patient History Medical History CKD (chronic kidney disease), stage III COPD (chronic obstructive pulmonary disease) Hypertension Tobacco abuse Surgical History History of hysterectomy Family History Mother Colorectal cancer Hypertension Father Kidney disease Hypertension Social History Preferred Language: Belarusian Communication Ability: Effective 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 Beliefs That Will Affect Care: None marital status: single Current Living Situation: Alone Current Living Situation Comment: SON LIVES RIGHT NEXT DOOR current occupational status: retired Other Information That Helps Us Care for You: No Feels Safe at Home: Yes Safety Concerns: Feels Safe At This Time Smoking Status: Light tobacco smoker Tobacco Type: cigarettes ; packs per day: 0.5 ; Cigarettes Per Day: 5 ; Do You Dip or Chew Tobacco: No ; Second Hand Exposure: No ; Tobacco Cessation Education Requested by Patient: No Hx Alcohol Use: Yes Alcohol type: hard liquor Hx Substance Use: No Physical Exam Physical Exam: Physical Exam: Constitutional: appearance nourished, healthy and normal Ears, Nose, Mouth and Throat: mucous membranes moist, no injection and skin normal, eyes normal Cardiovascular: normal S-1 and S-2 and regular rate and rhythm Respiratory: course breath sounds. Musculoskeletal: no peripheral edema and good distal pulses Skin: no stigmata of neurocutaneous disease noted and normal and intact Eyes: extraocular muscles intact (EOMI) and pupils equal, round and reactive to light (PERRL), hemorrhage in conjunctiva left eye NEUROLOGIC EXAMINATION: Mental status: Alert and interactive Oriented to full date and location Oriented to person Speech fluent with no evidence of aphasia Cranial Nerves smile eye brow raise symmetric Sensory: no sensory deficits with light or cool touch Coordination: finger to nose no bi pass Gait/Stance: Posture normal sitting up in bed . Motor: Negative for pronator drift of out stretched arms with eyes closed. Strength: biceps triceps hand environmental compliance manager 5/5 bilaterally hip flex plantar patellar flex ext 5/5 Results & Data Vital Signs (Past 12 Hours) Vital Signs Temp Pulse Pulse Resp BP BP Pulse Ox 10/03/19 11:46 36.8 C 75 18 160/93 H 90 10/03/19 07:39 58 L 10/03/19 07:34 36.9 C 63 18 118/50 L 92 10/03/19 04:28 65 10/03/19 03:14 57 L 18 138/62 90 Laboratory Results Abnormal lab results 10/03/19 10/03/19 Range/Units 05:22 05:22 MCV 100.5 H (80-100) fL RDW Std Deviation 52.4 H (36.4-46.3) fL Carbon Dioxide 35 H (21-32) mmol/L Anion Gap 2.0 L (3-11) Diagnostic Findings CT head- No acute intracranial findings CT orbits -No evidence of orbital mass or hematoma. MRI brain- No acute intracranial findings. Several old lacunar infarcts within the right cerebellar hemisphere and right basal ganglia. (1) AKIKO (subconjunctival hemorrhage) Laterality: left Qualified Code(s): H11.32 - Conjunctival hemorrhage, left eye
--- NOTE | 2019-10-03 17:30 | Hospitalist Progress Note ---
Date of Service October 03, 2019 Assessment & Plan (1) Hypertensive urgency: BP as high as 210/132. Suspect that some degree of BP elevation secondary to stress related to concerns about subconjunctival hemorrhage and recent stroke. BP's this evening 160/93 in right arm and 125/85 left arm. Continue valsartan / HCTZ. Add amlodipine 2.5 mg daily. Follow and titrate Rx. (2) Cerebrovascular disease: Recent lacunar stroke in August. Just finished dual antiplatelet therapy with ASA + clopidogrel for recent stroke; now only on low dose aspirin. CT head showed old infarct right caudate, old small right cerebellar infarct, small vessel ischemic changes, no new lesions. MRI showed similar findings, nothing acute. Continue ASA and statin. (3) Subconjunctival hemorrhage: Transient blurred vision, resolved. Just finished dual antiplatelet therapy with ASA + clopidogrel for recent stroke. BP management as discussed above. Outpatient follow-up with eye care connector recommended. (4) CKD (chronic kidney disease), stage III: Creatinine 0.95. (5) DVT prophylaxis: No anticoagulants due to subconjuctival hemorrhage. SCD's. Ambulating. (6) Discharge planning issues: Discharge to home. Internal Medicine follow-up with Dr. Thao Madrid. Follow-up with Ophthalmology or Optometry. Admission and Anticipated Discharge Date Admission Date: October 02, 2019 Subjective Doing well. No headache, visual changes, focal neuro symptoms. No CP or SOB. Would like to go home. Physical Exam Constitutional: no acute distress Eyes: left subconjunctival hemorrhage Respiratory: no respiratory distress Auscultation: lungs clear to auscultation bilaterally Cardiovascular: Rate/Rhythm: regular rate and regular rhythm Vessels: no JVD Extremities: no calf tenderness and no edema Gastrointestinal (Abdomen): normal bowel sounds, soft, nontender, no hepatosplenomegaly Skin: no rashes, warm and dry Neurologic: alert, oriented PERRL, EOMI no facial palsy no dysarthria no aphasia motor strength upper and lower extremities 5/5 Psychiatric: Orientation: alert and oriented x 3 Results & Data ([facility]) Vital Signs (Past 12 Hours) Vital Signs Temp Pulse Pulse Resp BP BP Pulse Ox 10/03/19 15:56 36.3 C L 79 18 125/85 90 10/03/19 15:20 74 10/03/19 11:46 36.8 C 75 18 160/93 H 90 10/03/19 07:39 58 L 10/03/19 07:34 36.9 C 63 18 118/50 L 92
--- NOTE | 2019-10-04 09:46 | Discharge Summary ---
Date of Service Date of Admission: 10/02/19 Date of Discharge: 10/03/19 Admission HPI Per Admitting Provider 78-year-old white female with a past medical history of hypertension, hyperlipidemia, TIA 3 weeks ago presents with left conjunctival hemorrhage and blurred vision that started today. She measured her blood pressure at home and it was 200/116 and in the emergency room it was 230 systolic at its height. She complains of mild blurry vision and fullness in the left eye. CT scan showed no bleeding. She is being treated for hypertensive urgency and we will rule out a CVA. Dr. Mckeon from neurology will see her in consult and she can follow-up with ophthalmology as an outpatient. Bleeding in the conjunctiva does not penetrate the iris. Principal Diagnosis hypertensive urgency left subconjunctival hemorrhage Discharge Data Allergies Allergy/AdvReac Type Severity Reaction Status Date / Time bupropion [From Zyban] Allergy Intermediate Hives Verified 10/02/19 17:07 minocycline Allergy Intermediate Rash Verified 10/02/19 17:07 Consultations 10/02/19 12:16 ED Decision to Admit Stat 10/02/19 16:53 Consult Neurology Routine Ordered Studies 10/02/19 10:50 CT head/brain wo con Stat CT orbit BI wo con Stat 10/02/19 16:53 MR brain wo con Stat Hospital Course (1) Hypertensive urgency: BP as high as 210/132. Suspect that some degree of BP elevation secondary to stress related to concerns about subconjunctival hemorrhage and recent stroke. BP's evening of discharge 160/93 in right arm and 125/85 left arm. Continue valsartan / HCTZ. Add amlodipine 2.5 mg daily. Follow and titrate Rx. (2) Cerebrovascular disease: Recent lacunar stroke in August. Just finished dual antiplatelet therapy with ASA + clopidogrel for recent stroke; now only on low dose aspirin. CT head showed old infarct right caudate, old small right cerebellar infarct, small vessel ischemic changes, no new lesions. MRI showed similar findings, nothing acute. Continue ASA and statin. (3) Subconjunctival hemorrhage: Transient blurred vision, resolved. Just finished dual antiplatelet therapy with ASA + clopidogrel for recent stroke. BP management as discussed above. Outpatient follow-up with eye aged or disabled care worker recommended. (4) CKD (chronic kidney disease), stage III: Creatinine 0.95. (5) DVT prophylaxis: No anticoagulants due to subconjuctival hemorrhage. SCD's. Ambulating. (6) Discharge planning issues: Discharge to home. Internal Medicine follow-up with Dr. Thao Madrid. Follow-up with Ophthalmology or Optometry. Total Time Total Time Spent Total Time Spent (In Minutes): 30 Discharge Plan Discharge Items Patient Disposition: Home - Self-Care Reason For Visit: bloodshot eye, high blood pressure Discharge Diagnosis: subconjunctival hemorrhage (bloodshot eye) high blood pressure Activity: Resume your previous activity Lifting: No more than 10 pounds Non-emergency contact: Primary Care Provider and Hospitalist Call non-emergency contact if: you have any medication questions and your symptoms worsen Follow-up/Referrals: Mayuri Oden PA-C [Physician Hydraulic Press Operator] - (10/10/2019 11:20 AM Mayuri Oden PA-C Neurology [facility] ) Thao Madrid MD [Primary Care Provider] - (10/11/2019 11:00 AM Thao Madrid MD) Diet: Heart Healthy Addtl Attending Provider Instructions: MEDICATION CHANGES: Start amlodipine (Norvasc) 2.5 mg daily for better control of blood pressure. SUMMARY OF TEST RESULTS: MRI scan showed old small strokes, but nothing new. RECOMMENDATIONS FOR FOLLOW-UP: Please see your eye aged or disabled care worker as soon as possible for evaluation. OTHER INSTRUCTIONS: Seek medical attention if you have: * temperature above 101 * chest pain or trouble breathing * abdominal pain, nausea, vomiting * diarrhea, dark stools or bloody stools * severe headache * problems with vision * any unanswered questions or concerns Call 911 if symptoms are severe. Please take good care of yourself. Call if you have any questions or problems. You can reach a [facility] hospitalist on duty at [facility] 24 hours a day by calling [phone]. My cell # is [phone]. Pending Studies at Discharge: No Stand-Alone Forms: My [facility], Smoking Cessation Medications and DC Order Prescriptions: New amlodipine 2.5 mg tablet 2.5 mg PO DAILY Qty: 30 RF: 5 Continued valsartan-hydrochlorothiazide 320-12.5 mg tablet 1 tab PO DAILY RF: 0 diphenhydramine-acetaminophen [Acetaminophen PM] 25-500 mg Tablet 1 tab PO HS RF: 0 albuterol sulfate 90 mcg/actuation HFA aerosol inhaler 2 puff INHALATION Q6H PRN (Reason: Shortness Of Breath) RF: 0 atorvastatin 40 mg Tablet 40 mg PO HS Qty: 30 RF: 1 aspirin [Ecotrin Low Strength] 81 mg Tablet,Delayed Release (Dr/Ec) 81 mg PO DAILY Qty: 90 RF: 1 Discharge Orders: Discharge Order (Routine); Ordered 10/03/19 Ordered By: Olivier Her Admission Data Admit Date/Time: 10/02/19 13:36 Attending Provider: Olivier Her Admit Provider: Rip Cee Primary Care Provider: Thao Madrid Other Providers: Rip Cee ; Olivier Mckeon Other Interventions: Discharge Summary Assessment (RN) Last Done: 10/03/19 17:48 DC Date/Time DO NOT enter until pt leaves facility: 10/03/19 18:11
== END 2019-10-03 18:11 | disposition home or self-care (01) ==
LOC: 2N 10:11 → ED 10:11 → SUATTDRO 13:36 → 2N 16:37